=== PATIENT | male | born 1955 | race Caucasian/White ===

== ENCOUNTER 2016-11-16 08:18 | Day surgery (SDC) | payer BC ==
[~2016-11-16] VITALS: Ht 177.8 cm; Wt 90.7 kg
[~2016-11-16 08:18] MED LIST: CALCIUM500 M2 OR; CINNAMON500 M1 OR; CRESTOR5 MG PO; FISH OIL1000 MG PO; LIPITOR10 M1 PO; LISINOPRIL10 MG PO; LISINOPRIL5 MG PO; LOSARTAN POT100 MG PO; MAGNESIUM30 M1 OR; METFORMIN HCL1000 MG PO; RED YEAST XX; ZOCOR20 MG PO
[2016-11-16 12:27] VITALS: BP 102/66
== END 2016-11-16 11:35 | disposition home or self-care (01) | DRG 951 ==
LOC: ENDO 08:18
PROVIDERS: ATTEND Surgery
PROC: 0DJD8ZZ Inspection of Lower Intestinal Tract, Via Natural or Artificial Opening Endoscopic (ICD-10-PCS; principal; 2016-11-16)
DX: Z12.11 Encounter for screening for malignant neoplasm of colon (principal); I10 Essential (primary) hypertension; K57.30 Diverticulosis of large intestine without perforation or abscess without bleeding; E11.9 Type 2 diabetes mellitus without complications; Z79.84 Long term (current) use of oral hypoglycemic drugs

== ENCOUNTER 2021-12-17 08:39 | Observation (INO) | payer MEDICARE, BC ==
[~2021-12-17] VITALS: Ht 177.8 cm; Wt 91.0 kg
[2021-12-17] VITALS (19 sets, daily range): BP systolic 95–135; BP diastolic 56–98
--- NOTE | 2021-12-17 08:49 | NUR ---
PATIENT AMBULATED TO ROOM IN NAD WITH STEADY GAIT AND AT SIDE. PROVIDER NOTIFIED OF PATIENT STATUS.
[2021-12-17 09:05] LABS: HEMATOCRIT 43.2 % (39.0-50.0); HEMOGLOBIN 13.4 g/dl (14.0-18.0); IMMATURE GRANULOCYTES 0.3 % (0.0-5.0); MEAN CELL VOLUME 85.2 fL CALC (80.0-100.0); MEAN CORPUSCULAR HGB 26.4 pG CALC (26.0-32.0); NEUT# 16.06 thou/uL (1.82-7.42); RED BLOOD COUNT 5.07 mill/uL (4.70-6.10); RED CELL DISTRI WIDTH 16.2 % (11.5-15.5)
--- NOTE | 2021-12-17 09:15 | NUR ---
Reassessment of patient completed. No distress noted.
[2021-12-17 09:21] LABS: PROTHROMBIN TIME 10.5 SECONDS (9.0-12.5)
[2021-12-17 09:23] LABS: ALBUMIN 4.4 g/dL (3.2-5.0); ALKALINE PHOSPHATASE 73 u/l (38-126); CHLORIDE 101 mmol/l (95-108); CREATININE 0.9 mg/dL (0.7-1.3); GFR FOR AFR.AMER. > 60 ML/MIN (>=60 (CALC)); GFR OTHER RACES > 60 ML/MIN (>=60 (CALC)); POTASSIUM 4.2 mmol/l (3.5-5.1); SGOT/AST 23 u/l (19-48); TOTAL PROTEIN 6.8 g/dL (6.3-8.2)
[2021-12-17 09:24] LABS: ANION GAP 18 (6-22 (CALC)); BILIRUBIN, TOTAL 0.4 mg/dL (0.0-1.4); BUN 30 mg/dL (8-23); BUN/CREATININE RATIO 33 (12-20 (CALC)); CARBON DIOXIDE 17 mmol/l (22-30); SODIUM 132 mmol/l (137-146)
--- NOTE | 2021-12-17 10:34 | NUR ---
Reassessment of patient completed. No distress noted.
[2021-12-17 11:04] LABS: URINE BILIRUBIN - DIPSTICK NEGATIVE (NEGATIVE); URINE BLOOD DIPSTICK NEGATIVE (NEGATIVE); URINE COLOR YELLOW; URINE GLUCOSE - DIPSTICK 250 mg/dL (NEGATIVE); URINE KETONE 15 mg/dL (NEGATIVE); URINE LEUK ESTERASE NEGATIVE (NEGATIVE); URINE PROTEIN - DIPSTICK NEGATIVE (NEG-TRACE); URINE SPECIFIC GRAVITY >=1.030; URINE UROBILINOGEN - DIPSTICK 0.2 E.U./dL (0.2)
[2021-12-17 11:08] LABS: URINE NITRITE - DIPSTICK NEGATIVE (Negative)
--- NOTE | 2021-12-17 11:40 | NUR ---
O.R. TEAM PRESENT IN DEPARTMENT FOR PATIENT RETRIEVAL.
--- NOTE | 2021-12-17 11:45 | NUR ---
TRANSITION OF CARE PATIENT TO O.R. FOR PROCEDURE THEN TO MEDICAL/SURGICAL.
--- NOTE | 2021-12-17 15:19 | NUR ---
Discharge instructions given. Patient verbalizes understanding of same. Discharged in stable condition via Wheelchair to Home with staff. All belongings sent with pt. IV REMOBVED TELE REMOVED
--- NOTE | 2021-12-17 15:33 | NUR ---
PT ARRIVED FROM THE OR VIA STRECHER ACCOMPANIED BY STAFF. REPORT RECIEVED FROM MARILIA. PT RESTING IN LOW FOWLERS POSITION. A/OX3 ASSESSMENT AND VS COMPLETED.HEART RHYTHM NORMAL ON TELE . RESPIRATIONS UNLABORED. BOWEL SOUNDS ACTIVE. IV SITE NOTED 18G RAC. NS @100. PT DENIES WOUNDS. PT VOMITED. ONCE ARRIVED TO MS . PROVIDER INFORMED. PT NPO AT THE MOMENT. PT DENIES ADDITIONAL NEEDS AT THE TIME. ALL SAFETY PRECAUTIONS IN PLACE.
--- NOTE | 2021-12-17 16:43 | NUR ---
PT NPO CONTACTED TO VERIFY FOR ICE CHIPS NO ANSWER. PT DENIES ADDITIONAL NEEDS AT THE TIME.
[2021-12-17 18:34] LABS: HEMATOCRIT 34.1 % (39.0-50.0); HEMOGLOBIN 11.1 g/dl (14.0-18.0)
--- NOTE | 2021-12-17 20:42 | NUR ---
PATIENT LYING IN BED. AOX3. NO DISTRESS NOTED. AT BEDSIDE. ADDRESSED ALL QUESTIONS AND CONCERNS AT THIS TIME. PATIENT DENIES ANY PAIN OOR DISCOMFORT. FALL PRECAUTIONS IN PLACE. CALL URIARTE WITHIN REACH.
[2021-12-17] MEDS ORDERED: AMLODIPINE PO (21:44)
[2021-12-17] MEDS ORDERED: DIOVAN160 MG PO (21:45)
[2021-12-17] MEDS ORDERED: SINGULAIR10 MG PO (21:46)
[2021-12-17] MEDS ORDERED: BAYER ASPIRIN E81 MG PO (21:47)
[2021-12-18] VITALS (11 sets, daily range): BP systolic 115–143; BP diastolic 70–80
[2021-12-18 04:57] LABS: HEMATOCRIT 29.8 % (39.0-50.0); HEMOGLOBIN 9.7 g/dl (14.0-18.0); MEAN CELL VOLUME 82.5 fL CALC (80.0-100.0); MEAN CORPUSCULAR HGB 26.9 pG CALC (26.0-32.0); MEAN CORPUSCULAR HGB CONC 32.6 g/dL CAL (32.0-36.0); RED BLOOD COUNT 3.61 mill/uL (4.70-6.10); RED CELL DISTRI WIDTH 16.5 % (11.5-15.5)
[2021-12-18 05:28] LABS: ANION GAP 9 (6-22 (CALC)); BUN 20 mg/dL (8-23); BUN/CREATININE RATIO 26 (12-20 (CALC)); CARBON DIOXIDE 20 mmol/l (22-30); CHLORIDE 108 mmol/l (95-108); CREATININE 0.8 mg/dL (0.7-1.3); GFR FOR AFR.AMER. > 60 ML/MIN (>=60 (CALC)); GFR OTHER RACES > 60 ML/MIN (>=60 (CALC)); MAGNESIUM 1.9 mg/dL (1.6-2.3); POTASSIUM 4.1 mmol/l (3.5-5.1); SODIUM 133 mmol/l (137-146)
--- NOTE | 2021-12-18 07:22 | NUR ---
PT RESTING IN LOW FOWLERS POSITION. A/OX3 ASSESMENT AND VS COMPLETED. HEART RHYTHM NORMAL RESPIRATIONSEVEN UNLABORED. BOWEL SOUNDS ACTIVE. IV SITE NOTED TO 18G RAC AND 20G LAC. PT SCD IN PLACE. PT DENIES ADDITIONAL NEEDS AT THE TIME ALL SAFETY PRECAUTIONS IN PLACE WITH CALL LIGHT IN REACH.
--- NOTE | 2021-12-18 12:49 | NUR ---
PT RESTING IN SEMI FOWLERS POSITION ,NEW IV IN PT DUE TO PREVIOUS FOUND DISLOGED.
[2021-12-18 13:40] LABS: HEMATOCRIT 30.9 % (39.0-50.0); HEMOGLOBIN 9.9 g/dl (14.0-18.0)
--- NOTE | 2021-12-18 16:53 | NUR ---
PT RESTING IN FOWLERS PT DENIES ADDITIONAL NEEDS PT EDUCATED ON INSULIN .
--- NOTE | 2021-12-18 19:39 | NUR ---
PATIENT SITTING UP IN BED AT THIS TIME WITH AT BEDSIDE. AWAKE ALERT AND ORIENTEDX3 WITH NO COMPLAINTS AT THIS TIME. PATIENT STATES THAT HE DID HAVE BM THIS AFTERNOON AND IT WAS BLACK IN COLOR FROM PREVIOUS GI BLEEDING. DENIES ANY ABD PAIN OR CRAMPING-NO N/V. ABD IS SOFT WITH ACTIVE BS. DENIES ANY DIFFICULTY WITH URINATION. LUNGS ARE CLEAR. NO PERIPHERAL EDEMA NOTED AND PULSES ARE PALPABLE. PATIENT WITH PROTONIX GTT IN PROGRESS AT 10CC/HR AND NS PATENT AND INFUSING AT 100CC/HR. TELE MONITOR IN PLACE AND READING SR-90'S. SAFETY PRECAUTIONS REINFORCED. REMAINS ON CLEAR LIQUID DIET AND TOLERATING WELL. CALL LIGHT IN REACH. WILL CONT TO MONITOR.
--- NOTE | 2021-12-18 21:30 | NUR ---
RESTING IN BED-GLUCOSE METER WAS 194-COVERED WITH HUMALOG 1UNITS PER SS COVERAGE PROTOCOL. PROVIDED WITH APPLE JUICE AND TOLERATED WELL. CONT TO VOID CLEARYELLOW URINE IN URINAL. PROTONIX GTT IN PREGRFESS AND NS PATENT AND INFUSING VIA LEFT AC SITE. TELE IN PLACE. WILL CONT TO MONITOR.
[2021-12-19] VITALS: BP 143/75
--- NOTE | 2021-12-19 | NUR ---
RESTING IN BED- APPEARS SLEEING AT BEDSIDE IN RECLINER. ZOSYN HUNG ORDERED. NO COMPLAINTS AT THIS TIME. TELE MONITOR IN PLACE. CALL LIGHT IN REACH. WILL CONT TO MONITOR.
--- NOTE | 2021-12-19 03:50 | NUR ---
PATIENT RESTING IN BED AT THIS TIME-NO COMPLAINTS. NOT GETTING MUCH SLEEP TONIGHT. TELE MONITOR REMAINS IN PLACE READING SR-90'S. IVF NS PATENT AND INFUSING AT 100CC/HR AND PROTONIX GTT AT 10CC/HR. CALL LIGHT IN REACH. WILL CONT TO MONITOR.
[2021-12-19 04:00] VITALS: BP 147/82
[2021-12-19 04:13] VITALS: BP 147/82
--- NOTE | 2021-12-19 04:50 | NUR ---
IV SITE TO RAC RED AND INFLAMMED. SITE D/C'ED WITH CATH INTACT. NEW IV SITE TO RIGHT WRIST STARTED WITHOUT ANY DIFFICULTY WITH GOOD BLOOD RFETURN. PROTONIX GTT INFUSING VIA NEW SITE AT 10CC/HR. CALL LIGHT IN REACH. WILL CONT TO MONITOR.
--- NOTE | 2021-12-19 04:55 | NUR ---
IV SITE TO RAC IS RED AND INFLAMMED. SITE WAS D/C'ED WITH CATH INTACT. NEW IV SITE TO LEFT WRIST STARTED-#22 WITH GOOD BLOOD RETURN. PROTONIX GTT INFUSING NEW IV SITE AT 10CC/HR. CALL LIGHT IN REACH. WILL CONT TO MONITOR.
[2021-12-19 05:25] LABS: HEMATOCRIT 32.5 % (39.0-50.0); HEMOGLOBIN 10.2 g/dl (14.0-18.0); MEAN CORPUSCULAR HGB CONC 31.4 g/dL CAL (32.0-36.0); RED BLOOD COUNT 3.78 mill/uL (4.70-6.10); RED CELL DISTRI WIDTH 16.6 % (11.5-15.5)
[2021-12-19 05:56] LABS: ANION GAP 9 (6-22 (CALC)); BUN 8 mg/dL (8-23); BUN/CREATININE RATIO 11 (12-20 (CALC)); CARBON DIOXIDE 21 mmol/l (22-30); CHLORIDE 107 mmol/l (95-108); CREATININE 0.7 mg/dL (0.7-1.3); GFR FOR AFR.AMER. > 60 ML/MIN (>=60 (CALC)); GFR OTHER RACES > 60 ML/MIN (>=60 (CALC)); MAGNESIUM 2.1 mg/dL (1.6-2.3); POTASSIUM 4.7 mmol/l (3.5-5.1); SODIUM 132 mmol/l (137-146)
[2021-12-19 06:46] VITALS: BP 141/77
[2021-12-19 08:00] VITALS: BP 144/83
--- NOTE | 2021-12-19 08:07 | NUR ---
PT RESTING IN LOW FOWLERS POSITION. A/OX3 ASSESSMENT AND VS COMPLETED. HEART RHYTHM NORMAL. ON TELE RESPIRATIONS EVEN AND UNALBORED. BOWEL SOUNDS ACTIVE. IV SITE NOTED. LAC LEFT HAND. PT DENIES ADDITIONAL NEEDS EDUCATED PT ON INSULIN. ALL SAFETY PRECAUTIONS IN PLACE.
[2021-12-19] MEDS ORDERED: AMOX/K CLAV875 M1 PO (10:26)
[2021-12-19] MEDS ORDERED: PROTONIX40 M2 PO (10:27)
[2021-12-19 11:01] VITALS: BP 144/83
--- NOTE | 2021-12-19 12:45 | NUR ---
PATIENT REFUSED WHEELCHAIR, REQUESTED TO WALK INSTEAD. STABLE WHEN AMBULATING. AT SIDE.
--- NOTE | 2021-12-19 12:53 | NUR ---
Discharge instructions given. Patient verbalizes understanding of same. Discharged in stable condition via Ambulatory to Home with staff. All belongings sent with pt. IVS REMOVED. TELE REMOVED ER INFORMED.
== END 2021-12-19 12:43 | disposition home or self-care (01) ==
LOC: ED 08:39 → ED-I 10:45 → ED 11:09 → MS2 11:10
PROVIDERS: Family Medicine; ADMIT Internal Medicine; ATTEND Internal Medicine
PROC: 0DB48ZX Excision of Esophagogastric Junction, Via Natural or Artificial Opening Endoscopic, Diagnostic (ICD-10-PCS; principal; 2021-12-17)
PROC: 0W3P8ZZ Control Bleeding in Gastrointestinal Tract, Via Natural or Artificial Opening Endoscopic (ICD-10-PCS; 2021-12-17)
DX: K25.4 Chronic or unspecified gastric ulcer with hemorrhage (principal); D50.0 Iron deficiency anemia secondary to blood loss (chronic); J18.9 Pneumonia, unspecified organism; K44.9 Diaphragmatic hernia without obstruction or gangrene; E87.2 Acidosis; I10 Essential (primary) hypertension; E11.9 Type 2 diabetes mellitus without complications; Z87.11 Personal history of peptic ulcer disease; Z79.84 Long term (current) use of oral hypoglycemic drugs; Z20.822 Contact with and (suspected) exposure to COVID-19
CPT/HCPCS: J1756; Q9967; S0164

== ENCOUNTER 2022-07-05 06:48 | Day surgery (SDC) | payer MEDICARE, BC ==
[~2022-07-05] VITALS: Ht 180.3 cm; Wt 90.7 kg
[~2022-07-05 06:48] MED LIST changes: +AMLODIPINE PO; +AMOX/K CLAV875 M1 PO; +BAYER ASPIRIN E81 MG PO; +DIOVAN160 MG PO; +PROTONIX40 M2 PO; +SINGULAIR10 MG PO
[2022-07-05 08:59] VITALS: BP 106/65
== END 2022-07-05 08:50 | disposition home or self-care (01) ==
LOC: ORM 06:48
PROVIDERS: ATTEND Surgery
PROC: 0DB58ZX Excision of Esophagus, Via Natural or Artificial Opening Endoscopic, Diagnostic (ICD-10-PCS; principal; 2022-07-05)
DX: K21.00 Gastro-esophageal reflux disease with esophagitis, without bleeding (principal); K44.9 Diaphragmatic hernia without obstruction or gangrene; I10 Essential (primary) hypertension; E11.9 Type 2 diabetes mellitus without complications; Z79.84 Long term (current) use of oral hypoglycemic drugs; Z87.19 Personal history of other diseases of the digestive system